=== PATIENT | female | born 1935 | race Caucasian/White ===

== ENCOUNTER → 2016-10-10 | Outpatient (CLI) | payer OTHER, MEDICARE ==
[~2016-10-10] MED LIST: ANTIVERT25 MG PO; ASPIRIN EC81 M1 PO; CLONIDINE0.1 PO; DYAZIDE; FISH OIL 1,0001 EAC5 PO; IBUPROFEN200 M2 PO; MULTIVITAMINS PO; NORCO 5-325 TA1 EACH PO; TRIAMTERENE-HC1 EAC1 PO; VITAMIN E400 UNIT PO
== END ==
LOC: RAD 13:37
DX: Z12.31 Encounter for screening mammogram for malignant neoplasm of breast (principal)

== ENCOUNTER → 2016-12-13 | Outpatient (CLI) | payer OTHER, MEDICARE | LOC: CAT 11:13 | DX: M79.671 Pain in right foot (principal) ==

== ENCOUNTER 2017-02-02 05:13 | Day surgery (SDC) | payer OTHER, MEDICARE ==
[~2017-02-02] VITALS: Ht 152.4 cm; Wt 65.8 kg
--- NOTE | ~2017-02-02 | S ---
[facility] [place] [address] SURGICAL PATH RPT PROCEDURE Name: MARLY TORREZ [facility]#: [id number] Admission: 02/02/17 Date of : 39 Discharge: 02/03/17 Report #: [id number] Path Case #: [id number] PATHOLOGY REPORT COLLECTION DATE: 02/02/2017 RECEIVED DATE: 02/02/2017 SUBMITTING PHYS: Dr. Diaz Lemus OTHER PHYS: Dr. Chey Zamora SPECIMEN(S) RECEIVED: A.Gallbladder * * * * * * * * * * * * FINAL DIAGNOSIS: Gallbladder, cholecystectomy: - Mild chronic cholecystitis. - Cholelithiasis. (IUV:pit; 02/06/2017) PATHOLOGIST: Angelica Gutierrez M.D. REPORT ELECTRONICALLY SIGNED BY: Angelica Gutierrez M.D. DATE/TIME: 02/06/2017 14:13 * * * * * * * * * * * * GROSS PATHOLOGY: Received in formalin labeled "Marly Vides gallbladder" and consists of a previously opened gallbladder measuring 6.5 cm in length by 5.1 cm in circumference. The serosa is glistening and green to yellow. The wall thickness is 0.2 cm. The mucosa is slightly velvety and green. Within the container are 5 nodular black calculi ranging in size from 0.6 cm to 1.3 cm. Public Records Researcher sections are submitted as A1. (JUAN JOSE; 02/03/2017) CLINICAL HISTORY: Gallbladder disease INITIAL CPT CODE(S): A; 83142 Professional services performed by [facility] at [facility] [address], [place] [address] Technical services performed by [facility] at [address] [place] [id number]. [facility] [address] [place] [address] SURGICAL PATH RPT PROCEDURE Name: MARLY TORREZ JULY Room #: DEP [facility]#: [id number] Admission: 02/02/17 Date of : 39 Discharge: 02/03/17 Report #: [id number] Path Case #: [id number] [facility] [address] [address] PHONE: [phone] DIRECTOR: Ivan Hernandez M.D. * * * END OF REPORT * * *
[~2017-02-02 05:13] MED LIST changes: +APAP650 PO; +CAL-CITRATE PL1 EACH PO; +CIPRO500 MG PO; +COZAAR 50 MG TA50 M2 PO; +VITAMIN D31000 UNIT PO; +VITAMIN E400 UNI2 PO; +ZYRTEC10 M5 PO
[2017-02-02 09:55] LABS: CALCIUM 9.9 mg/dL (8.5-10.1); CREATININE 0.9 mg/dL (0.6-1.0); POTASSIUM 3.1 mmol/L (3.5-5.1)
[2017-02-02 10:21] VITALS: BP 167/73
[2017-02-02] MEDS ORDERED: SENNA-S TABLET1 EACH PO (15:19)
[2017-02-02] MEDS ORDERED: HYDROCODONE-AP1 EAC6 PO (15:19)
[2017-02-02 17:05] VITALS: BP 150/60
[2017-02-02 20:00] VITALS: BP 149/49
[2017-02-03 04:29] VITALS: BP 142/52
[2017-02-03 06:18] LABS: HEMATOCRIT 33.8 % (37.0-47.0); HEMOGLOBIN 11.6 gm/dL (12.0-15.0); MCHC 34.3 g/dL (28.0-37.0); MCV 93.5 fL (80.0-100.0); PLATELET COUNT 268 thou/uL (150-400); RBC 3.61 mil/uL (4.20-5.00)
[2017-02-03 06:25] LABS: MANUAL DIFF YES
[2017-02-03 06:31] LABS: CALCIUM 9.3 mg/dL (8.5-10.1); POTASSIUM 3.6 mmol/L (3.5-5.1)
[2017-02-03 07:42] VITALS: BP 122/44
[2017-02-03 08:16] LABS: ABSOLUTE NEUTROPHILS 6.9 thou/uL (1.4-8.2); TOTAL CELL COUNT 100
[2017-02-03 08:17] LABS: PLATELET ESTIMATE NORMAL
[2017-02-03 10:28] VITALS: BP 122/44
== END 2017-02-03 10:45 | disposition home health service (06) ==
LOC: OR 05:13 → TBA 05:14 → OR 14:55 → 4E 17:11 → ENTRNSPT 02-03 10:34 → EDTRNSPTSTS 02-03 10:36 → OR 02-03 10:45
PROVIDERS: Surgery
DX: K80.20 Calculus of gallbladder without cholecystitis without obstruction (principal)
CPT/HCPCS: 50010; 50101; 50249; 50411; 50555; 50558; 50962; 51489; 51975; 52265; 53307; 54022; 54118; 55245; 55317; 56462; 56525; 56526; 62110; 62900; 70005

== ENCOUNTER → 2017-10-24 | Outpatient (CLI) | payer OTHER, MEDICARE ==
[~2017-10-24] MED LIST changes: +CENTRUM CHEWAB1 EACH PO; +HYDROCODONE-AP1 EAC6 PO; +SENNA-S TABLET1 EACH PO; +VITAMIN D32000 UNIT PO
== END ==
LOC: RAD 14:07
DX: Z12.31 Encounter for screening mammogram for malignant neoplasm of breast (principal); I10 Essential (primary) hypertension

== ENCOUNTER 2017-11-01 05:29 | Inpatient (IN) | payer OTHER, MEDICARE ==
[2017-10-23 13:02] LABS: HEMATOCRIT 37.1 % (37.0-47.0); HEMOGLOBIN 12.8 gm/dL (12.0-15.0); MCH 32.5 pg (26.0-34.0); MCHC 34.5 g/dL (28.0-37.0); MCV 94.4 fL (80.0-100.0); RBC 3.93 mil/uL (4.20-5.00); RDW 13.4 % (10.5-14.5); WBC 7.8 thou/uL (4.0-11.0)
[2017-10-23 13:03] LABS: ALBUMIN 4.5 g/dL (3.4-5.0); CREATININE 1.3 mg/dL (0.6-1.0); POTASSIUM 3.8 mmol/L (3.5-5.1)
[2017-10-23 13:32] LABS: URINE BILIRUBIN NEGATIVE (Negative); URINE BLOOD NEGATIVE (Negative); URINE CLARITY CLEAR; URINE COLOR YELLOW; URINE GLUCOSE-RANDOM* NEGATIVE (Negative); URINE KETONES NEGATIVE (Negative); URINE LEUKOCYTES-REFLEX NEGATIVE (Negative); URINE NITRITE-REFLEX NEGATIVE (Negative); URINE PROTEIN (DIPSTICK) NEGATIVE (Negative); URINE UROBILINOGEN 0.2 E.U./dl (0.2-1.0)
[2017-11-01] VITALS (14 sets, daily range): BP systolic 125–172; BP diastolic 51–125
[~2017-11-01] VITALS: Ht 152.4 cm; Wt 63.0 kg
--- NOTE | ~2017-11-01 | EKG ---
[address] [address] ELECTROCARDIOGRAM REPORT Name: RAMEZ TORREZ Room #: PRE IN ..#: [id number] Admission: Attend Phys: Hosea Castañeda MD Discharge: Date of : 39 Report #: [id number] THIS REPORT FOR: //name// [facility] Test Date: 2017-10-23 Test Time: 13:04:14 Pat Name: RAMEZ TORREZ Department: Room: Gender: F International Trade Manager: ANTHONY TRACY : 1935 Requested By: Hosea Castañeda Order Number: [id number] MD: Charanjit Sumner Measurements Intervals [place] Rate: 79 P: 70 MN: 178 QRS: 40 QRSD: 95 T: 56 QT: 381 QTc: 437 Interpretive Statements Sinus rhythm No significant abnormality Compared to ECG 07/13/2011 06:40:21 Limb lead reversal is no longer present Electronically Signed On 10-24-2017 8:56:31 CDT by Charanjit Sumner [email or web address] <ELECTRONICALLY SIGNED> By: Charanjit Sumner MD, [facility] 10/24/17 0856 1304 1304 Charanjit Sumner MD, [facility] /EPI
--- NOTE | ~2017-11-01 | O ---
[facility] [place] [address] OPERATIVE REPORT Name: RAMEZ TORREZ JULY Room #: 419-P ADM IN M.R.#: [id number] Admission: 11/01/17 Attend Phys: Hosea Castañeda MD Discharge: Date of : 37 Report #: [id number] THIS REPORT FOR: //name// CC: Chey Castañeda DATE OF SERVICE: 11/01/2017 PREOPERATIVE DIAGNOSIS: Left knee osteoarthritis. POSTOPERATIVE DIAGNOSIS: Left knee osteoarthritis. PROCEDURE: Left total knee arthroplasty using Navio system. SURGEON: Hosea Castañeda MD WIND TURBINE TECHNICIAN: Meghan Avila PA-C INDICATION FOR ASSISTANCE: Throughout the case, extensive retraction and manipulation of the knee was required. ANESTHESIA: LMA with an adductor canal block. IMPLANTS: Rosario and Nephew size 5 Legion narrow cobalt chrome femur, a size 3 tibia, a size 9 polyethylene and a size 29 patella. TOURNIQUET TIME: 57 minutes. : 25 mL. COMPLICATIONS: None. SPECIMENS: None. CONDITION UPON LEAVING THE OPERATING ROOM: Stable. INDICATIONS: The patient is a 81-year-old female with left knee osteoarthritis. She had failed conservative treatment for this and after discussion with her, she elected for left total knee arthroplasty. DESCRIPTION OF PROCEDURE: Risks, benefits, alternatives, complications were discussed in detail with the patient including but not limited to risk of anesthesia, risk of damage to nerves, arteries and blood vessels, risk for infection and bleeding, risk for continued knee pain and need for reoperation. Informed consent was obtained from the patient. Left knee was appropriately marked in the preoperative holding area. IV clindamycin was given for [facility] [address] [place] [address] OPERATIVE REPORT Name: RAMEZ TORREZ JULY Room #: 419-P ADM IN M.R.#: [id number] Admission: 11/01/17 Attend Phys: Hosea Castañeda MD Discharge: Date of : 37 Report #: [id number] preoperative antibiotics. Adductor canal block was placed by Anesthesia. She was brought to the operating room and placed in supine position on the operating room table. LMA anesthesia was induced without complication. Tourniquet was placed on the left thigh. Left lower extremity was prepped and draped in normal sterile fashion. Timeout was performed properly identifying the patient and procedure as well as the instrumentation and implants. All in the operating room were in agreement. Left lower extremity was exsanguinated, tourniquet was inflated. Tourniquet time was 57 minutes. Standard midline approach to the knee was made with 10 blade through the skin. Dissection was taken down sharply to the fascia and deep flaps were developed medially and laterally. Fresh 10 blade was used to make a medial parapatellar arthrotomy and there was tricompartmental osteoarthritis noted. ACL and PCL were removed sharply. Reference pins were then placed into the femur and the tibia and the knee was then digitally mapped using the wutabout system. Intraoperative plan was made and we planned for a size 5 femur and a size 3 tibia. After acceptance of the plan, the distal femoral cut was made using the Navio bur. The size 5, 4-in-1 cutting block was placed and the anterior, posterior and chamfer cuts were made on the femur. The tibia was then subluxed anteriorly and the tibial resection guide was pinned in place using the Navio computer system. Tibial resection was then made with a saw. The tibia was sized, found to be a size 3, a size 3 tibial trial was placed and pinned. A size 5 femoral trial was placed and the box cut was made. A post was placed and this was trialed with a size 9 polyethylene. Knee was taken through range of motion, found to have good balance in flexion, extension both medially and laterally, both manually as well as digitally using the Navio system. A 9 mm was taken off the posterior surface of the patella and a size 29 patellar trial button was placed. Knee was taken through range of motion, found to be stable, found to have good patellar tracking. Trial components were removed. Bony ends were thoroughly irrigated with normal saline and a final size 3 tibia, a size 5 Legion narrow cobalt chrome femur and a size 29 patella were cemented in place using standard cementation techniques. While the cement cured, a periarticular injection consisting of morphine, ropivacaine, epinephrine and Toradol was placed around the knee joint and tissues. After the cement cured, tourniquet was deflated. Hemostasis was obtained with Bovie cautery. A final size 9 polyethylene was placed. A gram of vancomycin was placed deep in the joint. The fascia was closed with 0 Vicryl, skin was closed with 2-0 Vicryl and Monocryl. Dermabond and a JUSTIN dressing was applied. The patient tolerated this procedure well and went to recovery room under care of Anesthesia postoperatively. <ELECTRONICALLY SIGNED> By: Hosea Castañeda MD 11/02/17 0741 1641 [id number] Hosea Castañeda MD /nt
[2017-11-02 00:30] VITALS: BP 168/75
[2017-11-02 01:30] VITALS: BP 147/58
[2017-11-02 02:30] VITALS: BP 118/57
[2017-11-02 06:06] LABS: HEMATOCRIT 31.9 % (37.0-47.0); MCH 32.8 pg (26.0-34.0); MCHC 34.5 g/dL (28.0-37.0); MCV 95.1 fL (80.0-100.0); RBC 3.36 mil/uL (4.20-5.00); RDW 13.3 % (10.5-14.5); WBC 9.1 thou/uL (4.0-11.0)
[2017-11-02 07:10] VITALS: BP 130/53
[2017-11-02 22:52] VITALS: BP 133/42
[2017-11-03 08:36] VITALS: BP 121/41
[2017-11-03 09:23] LABS: HEMATOCRIT 31.2 % (37.0-47.0); HEMOGLOBIN 10.8 gm/dL (12.0-15.0); MCH 32.7 pg (26.0-34.0); MCHC 34.6 g/dL (28.0-37.0); MCV 94.4 fL (80.0-100.0); RBC 3.3 mil/uL (4.20-5.00); RDW 13.5 % (10.5-14.5); WBC 8.1 thou/uL (4.0-11.0)
[2017-11-03 14:10] VITALS: BP 129/54
[2017-11-03] MEDS ORDERED: NEURONTIN 300300 M1 PO (14:20)
== END 2017-11-03 17:09 | disposition home or self-care (01) | DRG 470 ==
LOC: 4E 05:29 → TBA 05:29 → PRE 05:34 → 4W 18:04 → 4E 22:44 → SICU 11-02 16:23 → ENTRNSPT 11-03 16:17 → SICU 11-03 17:09
PROVIDERS: Orthopaedic Surgery
PROC: 0SRD0J9 Replacement of Left Knee Joint with Synthetic Substitute, Cemented, Open Approach (ICD-10-PCS; principal; 2017-11-01)
PROC: 8E0Y0CZ Robotic Assisted Procedure of Lower Extremity, Open Approach (ICD-10-PCS; 2017-11-01)
DX: M17.12 Unilateral primary osteoarthritis, left knee (principal); Z88.8 Allergy status to other drugs, medicaments and biological substances; Z79.82 Long term (current) use of aspirin; Z79.899 Other long term (current) drug therapy
CPT/HCPCS: 10783; 15002; 50010; 50101; 50415; 50954; 51130; 51225; 51771; 53078; 53364; 54118; 56527; 56528; 57095; 57103; 57104; 57109; 57110; 57113; 57127; 62110; 62900; 64037; 64041; 70005

== ENCOUNTER 2017-11-07 15:05 | Inpatient (IN) | payer OTHER, MEDICARE ==
[~2017-11-07] VITALS: Ht 152.4 cm; Wt 74.8 kg
--- NOTE | ~2017-11-07 | HC ---
[facility] [place] [address] CONSULTATION Name: RAMEZ TORREZ JULY Room #: 422-P ADM IN M.R.#: [id number] Admission: 11/07/17 Attend Phys: Herb Jaramillo MD Discharge: Date of : 37 Report #: [id number] THIS REPORT FOR: //name// CC: Herb Zamora DATE OF SERVICE: 11/10/2017 HISTORY OF PRESENT ILLNESS: The patient is a 81-year-old white female with history of hypertension, osteoarthritis, who had a prior left total knee replacement on 11/01/2017. She was discharged with home health care. She was doing well, getting around with her front-wheeled walker at home. She had the onset of nausea, vomiting, was admitted to [facility], diagnosed with colitis, suspected ischemic with possible sepsis, acute renal insufficiency and hyponatremia. She underwent an EGD and diagnosed with esophagitis and gastritis. She is significantly debilitated from her premorbid status and we are seeing her in Rehabilitation Medicine consultation. PAST MEDICAL HISTORY: Includes hypertension, osteoarthritis, right rotator cuff repair, closed right shoulder dislocation, reduced lap cholecystectomy. MEDICATIONS: Please see the full medication listing. ALLERGIES: KEFLEX. SOCIAL HISTORY: Lives in a house alone, 2 steps in. Did not utilize a gait aid prior to the total knee replacement, but has used a front-wheeled walker since has involved daughters in the area. REVIEW OF SYSTEMS: Did not offer any current complaints of chest pain, shortness of breath, abdominal discomfort. Still has some abdominal complaints as expected. She feels that her left knee is overall doing better. No other focal extremity pain complaints. Complains of some generalized weakness. PHYSICAL EXAMINATION: GENERAL: A 81-year-old obese, white female, in no obvious distress. She is alert, pleasant. VITAL SIGNS: Last recorded temperature 99, pulse 97, respirations 18, blood pressure 164/65. HEENT: Appeared to be benign. NEUROLOGIC: Cranial nerves grossly intact. Facies are symmetric. ABDOMEN: Somewhat distended, soft, nontender. EXTREMITIES: She has functional range of motion of both upper extremities and decreased active range of motion and strength of the shoulders. Movement of the elbows, wrists, hands are more of a grade 4. Lower extremities, left knee incision is dressed. No focal calf swelling. She can dorsiflex the left ankle. [facility] [address] [place] [address] CONSULTATION Name: RAMEZ TORREZ JULY Room #: 422-P ADM IN M.R.#: [id number] Admission: 11/07/17 Attend Phys: Herb Jaramillo MD Discharge: Date of : 37 Report #: [id number] Noted to have good range of motion, -5-105 in physical therapy. Strength is probably a grade 4- to 3+. Right lower extremity strength is grade 4-. She has been min assist with sit to stand. Gait was 30-feet min assist with a front-wheeled walker. ASSESSMENT: A 81-year-old white female with the following problem list: 1. Medical complexity with generalized debilitation. 2. Colitis, suspected ischemic colitis with possible sepsis. 3. Esophagitis. 4. Gastritis. 5. Hyponatremia. 6. Acute renal insufficiency. 7. Recent left total knee replacement on 11/01/2017. PLAN: The patient is currently on IV, PPI and IV antibiotics. She just underwent EGD earlier today. She has had a significant functional decline from her premorbid status. She is dependent for lower extremity dressing and needs min assist with basic functional mobility skills. We are considering her for an acute in-hospital inpatient rehabilitation stay and will be glad to follow along with you. By: 1235 0049 Tyler Harris MD /[place]
--- NOTE | ~2017-11-07 | HC ---
[facility] [place] [address] CONSULTATION Name: RAMEZ TORREZ JULY Room #: 422-P ADM IN M.R.#: [id number] Admission: 11/07/17 Attend Phys: Herb Jaramillo MD Discharge: Date of : 37 Report #: [id number] THIS REPORT FOR: //name// CC: Herb Zamora DATE OF SERVICE: 11/08/2017 REASON FOR CONSULTATION: Evaluate colitis. HISTORY OF PRESENT ILLNESS: The patient is a 81-year-old with underlying history of hypertension and degenerative arthritis. On 11/01/2017, she underwent left total knee arthroplasty without intraoperative complication. Discharged within 48 hours. While at home, noted some constipation with no bowel movement over a 4-day period. Subsequently, she developed increased abdominal pain, left mid to lower quadrant associated with nausea and some vomiting. She then had a hard stool followed by diarrhea. Did not notice any blood in her stool. She was unable to participate in rehabilitation services and was sent to the Emergency Room for further evaluation. She has been hemodynamically stable. She had a marked left shift on her initial CBC. CT scan showed inflammatory changes in the left colon. Her nausea has resolved. She had a soft formed stool today. Abdominal pain has improved. She has been treated with ciprofloxacin and metronidazole. No prior history of coronary artery disease or peripheral vascular disease. No previous stroke. She is a nonsmoker. No previous intestinal disease such as diverticulitis or inflammatory bowel disease. Her abdominal pain is mild in nature and mostly on the left side. Appetite has been poor. ALLERGIES: CEPHALEXIN with hallucinations. Does tolerate penicillins. MEDICATIONS: As noted on her MAR including oxycodone, vitamin E, Zyrtec, vitamin D, multivitamin, triamterene/hydrochlorothiazide, Cozaar, calcium, now on ciprofloxacin and metronidazole. PAST MEDICAL HISTORY: Hypertension, osteoarthritis, rotator cuff repair, bunionectomy, right foot, bilateral cataract surgeries, and bilateral blepharoplasty, right shoulder arthroscopy, laparoscopic cholecystectomy. FAMILY HISTORY: Noncontributory. SOCIAL HISTORY: Nonsmoker, no significant alcohol intake. REVIEW OF SYSTEMS: Ten-point review of systems was negative other than what is described above. PHYSICAL EXAMINATION: [facility] [address] [place] [address] CONSULTATION Name: RAMEZ TORREZ JULY Room #: 422-P ADM IN ..#: [id number] Admission: 11/07/17 Attend Phys: Herb Jaramillo MD Discharge: Date of : 37 Report #: [id number] VITAL SIGNS: Afebrile and hemodynamically stable. GENERAL: She is alert and cooperative and pleasant, in no acute distress. Mental status was normal. Mood was normal. NEUROLOGIC: Nonfocal. Cranial nerves were intact. Strength was normal throughout, although it was limited evaluation to the right leg due to her postoperative state. SKIN: Unremarkable, without rash or decubitus. No lymphadenopathy. HEENT: Eyes nonicteric. Mouth unremarkable. No mucositis or ulcerations. NECK: Supple, with no thyromegaly. LUNGS: Clear. HEART: Regular, without murmur. ABDOMEN: Soft, positive bowel sounds, tenderness in the left mid to lower quadrant without appreciable mass. No hepatosplenomegaly or mass. RECTAL: Not performed. BACK: Unremarkable. No CVA tenderness. EXTREMITIES: With postoperative change, left knee. Wound dressing was dry and intact. Range of motion was limited with approximately 25 degrees of flexion. Ecchymosis to the medial aspect of her knee and thigh. Minimal peripheral edema on the left leg. LABORATORY STUDIES: Sodium 129, potassium 3.8, bicarbonate 25, creatinine 1.3, alkaline phosphatase 210. Liver function test normal. Albumin of 2.0, lactate 1.5, hemoglobin 8.2, platelet count 236,000, WBC 6.4 with 79% segs. Yesterday's white count was 9.9 with 40% bands. Chest x-ray, left lower lobe atelectasis. CT scan of the abdomen showed again left lower lobe atelectasis with left colonic inflammatory change involving the distal transverse and descending colon. She did have some mild diverticular changes in the sigmoid region. No abscess evident. IMPRESSION: A 81-year-old who is 7 days post left total knee arthroplasty, presents with left colitis. I am suspecting underlying ischemia due to her constipation. It is still possible this could be related to acute bacterial infection, although she has not been eating out or eating much at all to contract such. She has had no other travel exposure. Inflammatory bowel disease also considered, but would be less likely. RECOMMENDATIONS: We will continue with ciprofloxacin and metronidazole. Repeat laboratory studies and continue with fluid resuscitation. The patient will require colonoscopy following discharge to further evaluate. Would avoid constipation. If any worsening, we will need to have GI service evaluate sooner. <ELECTRONICALLY SIGNED> By: Burt Reyes MD 11/09/17 1101 21 0125 Burt Reyes MD /nt
--- NOTE | ~2017-11-07 | EKG ---
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: : 1935 Requested By: Melissa Wakefield Order Number: [id number] MD: Charanjit Sumner Measurements Intervals [place] Rate: 95 P: 74 AK: 170 QRS: 48 QRSD: 89 T: 27 QT: 322 QTc: 405 Interpretive Statements Sinus rhythm Low voltage, precordial leads Compared to ECG 10/23/2017 13:04:14 Low QRS voltage now present Electronically Signed On 11-07-2017 17:10:19 CDT by Charanjit Sumner [email or web address] <ELECTRONICALLY SIGNED> By: Charanjit Sumner MD, [facility] 11/07/17 1710 1556 1556 Charanjit Sumner MD, [facility] /EPI
--- NOTE | ~2017-11-07 | P ---
[facility] [place] [address] PROCEDURE REPORT Name: RAMEZ TORREZ JULY Room #: 422-P ADM IN M.R.#: [id number] Admission: 11/07/17 Attend Phys: Herb Jaramillo MD Discharge: Date of : 37 Report #: [id number] THIS REPORT FOR: //name// CC: Herb Zamora DATE OF SERVICE: 11/10/2017 PROCEDURE PERFORMED: Upper endoscopy. HISTORY OF PRESENT ILLNESS: The patient is a 81-year-old female with a recent left total knee arthroplasty who was admitted on 11/07/2017 for abdominal pain and drop in her hemoglobin. CT scan of the abdomen showing abnormal thickening of the distal transverse and descending colon consistent with colitis. The patient is on IV antibiotics at this time. She has continued significant nausea as well as dysphagia. Therefore, the plan is for upper endoscopy today for further evaluation. DESCRIPTION OF PROCEDURE: The risks and benefits of the procedure were explained to the patient, those risks including but not limited to bleeding, perforation, the risk of sedation. She understood these risks and gave informed consent. Sedation was given using propofol per anesthesia. Next, using a standard Olympus upper endoscope, the scope was placed in the patient's mouth and advanced under direct vision through the esophagus, stomach and into the second portion of the duodenum. The upper and mid esophagus were normal in appearance. In the distal esophagus, there was evidence of significant grade C erosive esophagitis filled with linear ulcerations. There were no signs of bleeding, no vessels or blood was noted. There was diffuse moderate gastritis noted throughout the stomach. I was not able to take biopsies as the patient is on aspirin at this time. There were no signs of bleeding. The pylorus was normal and patent. The duodenal bulb, first and second portion were all normal. The scope was then withdrawn and the procedure terminated. The patient tolerated the procedure well. IMPRESSION: 1. Grade C erosive esophagitis. 2. Diffuse gastritis. 3. Otherwise normal upper endoscopy. RECOMMENDATIONS: We will increase PPI to 40 mg b.i.d. IV. We will add liquid Carafate at this time and start full liquid diet today. As far as her colitis, this is suspected ischemic colitis. Her CT arteriogram of the abdomen shows no mesenteric stenosis. Stool studies are still pending. In the meantime, we will continue Cipro and Flagyl. If stool studies are negative, we will discontinue antibiotics in the near future. [facility] [address] [place] [address] PROCEDURE REPORT Name: RAMEZ TORREZ JULY Room #: 422-P [facility] IN M.R.#: [id number] Admission: 11/07/17 Attend Phys: Herb Jaramillo MD Discharge: Date of : 37 Report #: [id number] Thank you for allowing me to participate in her care. <ELECTRONICALLY SIGNED> By: Piotr Pollack MD 11/11/17 1039 1334 0558 Piotr Pollack MD /baljit
[~2017-11-07 15:05] MED LIST changes: +NEURONTIN 300300 M1 PO
[2017-11-07 15:14] VITALS: BP 93/42
[2017-11-07] MEDS ORDERED: OXYCODONE-ACET1 EACH PO (15:39)
[2017-11-07 15:43] LABS: HEMATOCRIT 28.2 % (37.0-47.0); HEMOGLOBIN 9.7 gm/dL (12.0-15.0); MCH 32.4 pg (26.0-34.0); MCHC 34.5 g/dL (28.0-37.0); MCV 93.9 fL (80.0-100.0); PLATELET COUNT 296 thou/uL (150-400); RDW 14.2 % (10.5-14.5); WBC 9.9 thou/uL (4.0-11.0)
[2017-11-07 15:53] LABS: ANION GAP 7 mmol/L (7-16); BUN 44 mg/dL (7-18); CALCIUM 10.6 mg/dL (8.5-10.1); CHLORIDE 92 mmol/L (98-107); CO2 28 mmol/L (21-32); CREATININE 1.9 mg/dL (0.6-1.0); GLUCOSE 148 mg/dL (74-106); POTASSIUM 4.6 mmol/L (3.5-5.1); SODIUM 127 mmol/L (136-145)
[2017-11-07 16:01] LABS: ALBUMIN 2.5 g/dL (3.4-5.0); LIPASE 48 U/L (73-393); SGOT 34 U/L (15-37); SGPT 86 U/L (30-65); TOTAL BILIRUBIN 1.3 mg/dL (<0.1-1.0); TOTAL PROTEIN 6.5 g/dL (6.4-8.2); TROPONIN-I <0.06 ng/mL (<0.06)
[2017-11-07 16:08] LABS: ABSOLUTE NEUTROPHILS 7.5 thou/uL (1.4-8.2); METAMYELOCYTES 1 %; PLATELET ESTIMATE NORMAL
[2017-11-07 17:35] VITALS: BP 125/50
[2017-11-07 20:00] VITALS: BP 119/42
[2017-11-07 23:00] VITALS: BP 108/39
[2017-11-08 00:30] VITALS: BP 105/40
[2017-11-08 04:18] LABS: ABSOLUTE NEUTROPHILS 5.1 thou/uL (1.4-8.2); BASOPHILS 0.4 % (0.0-2.0); EOSINOPHILS 1.3 % (0.0-3.0); HEMATOCRIT 23.3 % (37.0-47.0); HEMOGLOBIN 8.2 gm/dL (12.0-15.0); LYMPHOCYTES 9.6 % (24.0-44.0); MCH 33.1 pg (26.0-34.0); MCHC 35.1 g/dL (28.0-37.0); MCV 94.3 fL (80.0-100.0); MONOCYTES 9.2 % (1.0-8.0); PLATELET COUNT 236 thou/uL (150-400); POLYS 79.5 % (36.0-66.0); RBC 2.47 mil/uL (4.20-5.00); RDW 14.2 % (10.5-14.5); WBC 6.4 thou/uL (4.0-11.0)
[2017-11-08 04:30] VITALS: BP 140/49
[2017-11-08 04:43] LABS: CALCIUM 8.9 mg/dL (8.5-10.1); CREATININE 1.3 mg/dL (0.6-1.0); MAGNESIUM 1.8 mg/dL (1.8-2.4); POTASSIUM 3.8 mmol/L (3.5-5.1); TOTAL BILIRUBIN 0.9 mg/dL (<0.1-1.0); TOTAL PROTEIN 5.2 g/dL (6.4-8.2)
[2017-11-08 18:15] VITALS: BP 120/35
[2017-11-08 19:45] VITALS: BP 145/41
[2017-11-09 04:58] VITALS: BP 144/43
[2017-11-09 05:38] LABS: ABSOLUTE NEUTROPHILS 4.4 thou/uL (1.4-8.2); BASOPHILS 0.6 % (0.0-2.0); HEMATOCRIT 23.6 % (37.0-47.0); HEMOGLOBIN 8.2 gm/dL (12.0-15.0); MCH 32.8 pg (26.0-34.0); MCHC 34.9 g/dL (28.0-37.0); MCV 93.8 fL (80.0-100.0); MONOCYTES 11.1 % (1.0-8.0); PLATELET COUNT 286 thou/uL (150-400); POLYS 73.3 % (36.0-66.0); RBC 2.51 mil/uL (4.20-5.00); RDW 14.1 % (10.5-14.5)
[2017-11-09 09:50] VITALS: BP 156/61
[2017-11-09 14:52] LABS: % SATURATION 12 % (20-39); IRON 19 ug/dL (50-170); TIBC 161 ug/dL (250-450)
[2017-11-09 21:00] VITALS: BP 175/65
[2017-11-09 23:00] VITALS: BP 157/52
[2017-11-10 04:59] VITALS: BP 168/55
[2017-11-10 07:26] LABS: HEMATOCRIT 24.7 % (37.0-47.0); HEMOGLOBIN 8.6 gm/dL (12.0-15.0); MCH 32.5 pg (26.0-34.0); MCHC 34.7 g/dL (28.0-37.0); MCV 93.7 fL (80.0-100.0); RBC 2.64 mil/uL (4.20-5.00); RDW 14.2 % (10.5-14.5); WBC 6.2 thou/uL (4.0-11.0)
[2017-11-10 07:42] VITALS: BP 164/65
[2017-11-10 09:16] LABS: ALBUMIN 2.1 g/dL (3.4-5.0); CREATININE 0.8 mg/dL (0.6-1.0); POTASSIUM 3.4 mmol/L (3.5-5.1); TOTAL BILIRUBIN 0.5 mg/dL (<0.1-1.0); TOTAL PROTEIN 5.2 g/dL (6.4-8.2)
[2017-11-10 15:48] VITALS: BP 156/76
[2017-11-10 19:20] VITALS: BP 159/52
[2017-11-11 04:44] VITALS: BP 170/565; BP 170/65
[2017-11-11 06:31] LABS: HEMATOCRIT 25.6 % (37.0-47.0); HEMOGLOBIN 8.8 gm/dL (12.0-15.0); MCH 32.2 pg (26.0-34.0); MCHC 34.4 g/dL (28.0-37.0); MCV 93.4 fL (80.0-100.0); RBC 2.74 mil/uL (4.20-5.00); RDW 14.2 % (10.5-14.5); WBC 6.9 thou/uL (4.0-11.0)
[2017-11-11 06:45] LABS: CALCIUM 8.7 mg/dL (8.5-10.1); CREATININE 0.9 mg/dL (0.6-1.0); MAGNESIUM 1.6 mg/dL (1.8-2.4); POTASSIUM 3.2 mmol/L (3.5-5.1)
[2017-11-11 07:31] VITALS: BP 153/56
[2017-11-11 15:46] VITALS: BP 146/68
[2017-11-11 20:00] VITALS: BP 136/65
[2017-11-12 04:51] VITALS: BP 148/56
[2017-11-12 07:59] LABS: HEMATOCRIT 25.6 % (37.0-47.0); MCH 32.7 pg (26.0-34.0); MCV 93.3 fL (80.0-100.0); RBC 2.75 mil/uL (4.20-5.00); WBC 7.6 thou/uL (4.0-11.0)
[2017-11-12 08:14] LABS: CALCIUM 8.3 mg/dL (8.5-10.1); CREATININE 0.8 mg/dL (0.6-1.0); MAGNESIUM 1.9 mg/dL (1.8-2.4); POTASSIUM 3.1 mmol/L (3.5-5.1)
[2017-11-12 09:26] VITALS: BP 153/55
[2017-11-12 18:07] VITALS: BP 145/90
[2017-11-12 19:58] VITALS: BP 143/43
[2017-11-13 05:03] VITALS: BP 148/5
[2017-11-13 05:33] LABS: HEMATOCRIT 27.3 % (37.0-47.0); HEMOGLOBIN 9.3 gm/dL (12.0-15.0); MCH 31.5 pg (26.0-34.0); MCHC 33.9 g/dL (28.0-37.0); MCV 92.8 fL (80.0-100.0); RBC 2.94 mil/uL (4.20-5.00); RDW 14.6 % (10.5-14.5); WBC 9.3 thou/uL (4.0-11.0)
[2017-11-13 05:46] LABS: CALCIUM 8.3 mg/dL (8.5-10.1); CREATININE 0.9 mg/dL (0.6-1.0); MAGNESIUM 1.7 mg/dL (1.8-2.4); POTASSIUM 3.3 mmol/L (3.5-5.1)
[2017-11-13 08:40] VITALS: BP 150/56
[2017-11-13 19:17] VITALS: BP 151/87
[2017-11-14 02:15] VITALS: BP 156/55
[2017-11-14 07:22] VITALS: BP 153/64
[2017-11-14] MEDS ORDERED: PROTONIX40 M1 PO (14:43)
[2017-11-14] MEDS ORDERED: ACIDOPHILUS1 EAC4 PO (14:43)
[2017-11-14] MEDS ORDERED: ASPIRIN325 PO (14:43)
[2017-11-14] MEDS ORDERED: CARAFATE 11 GM/10 M1 PO (14:43)
[2017-11-14] MEDS ORDERED: IPRAT-ALBUT 0.5-3 ML INH (14:43)
[2017-11-14] MEDS ORDERED: MIRALAX17 GM PO (14:43)
[2017-11-14] MEDS ORDERED: NORVASC5 MG PO (14:43)
[2017-11-14] MEDS ORDERED: ASPIRIN81 M2 PO (14:54)
[2017-11-14] MEDS ORDERED: LASIX 40 MG TAB40 M2 PO (14:58)
== END 2017-11-14 16:15 | DRG 871 ==
LOC: ER 15:05 → 4E 17:16 → EROBS 17:16 → 4E 18:09
PROVIDERS: Internal Medicine; Nurse Practitioner; Specialist; Student in an Organized Health Care Education/Training Program
PROC: 0DJ08ZZ Inspection of Upper Intestinal Tract, Via Natural or Artificial Opening Endoscopic (ICD-10-PCS; principal; 2017-11-10)
DX: A41.9 Sepsis, unspecified organism (principal); E43 Unspecified severe protein-calorie malnutrition; N17.0 Acute kidney failure with tubular necrosis; K55.9 Vascular disorder of intestine, unspecified; E87.1 Hypo-osmolality and hyponatremia; K22.10 Ulcer of esophagus without bleeding; A09 Infectious gastroenteritis and colitis, unspecified; Z66 Do not resuscitate; I10 Essential (primary) hypertension; M19.90 Unspecified osteoarthritis, unspecified site; Z96.652 Presence of left artificial knee joint; K21.0 Gastro-esophageal reflux disease with esophagitis; K59.00 Constipation, unspecified; E87.6 Hypokalemia; E83.42 Hypomagnesemia; D63.8 Anemia in other chronic diseases classified elsewhere; K29.70 Gastritis, unspecified, without bleeding; E86.0 Dehydration; Z68.32 Body mass index [BMI] 32.0-32.9, adult; Z98.42 Cataract extraction status, left eye; Z98.41 Cataract extraction status, right eye; Z90.49 Acquired absence of other specified parts of digestive tract; Z79.899 Other long term (current) drug therapy; Z88.8 Allergy status to other drugs, medicaments and biological substances
CPT/HCPCS: 10183; 10783; 62110; 62900; 70005

== ENCOUNTER 2018-04-25 10:56 | Emergency (ER) | payer OTHER, MEDICARE ==
[~2018-04-25] VITALS: Ht 152.4 cm; Wt 62.1 kg
[~2018-04-25 10:56] MED LIST changes: +ACIDOPHILUS1 EAC4 PO; +ASPIRIN325 PO; +ASPIRIN81 M2 PO; +CARAFATE 11 GM/10 M1 PO; +IPRAT-ALBUT 0.5-3 ML INH; +LASIX 40 MG TAB40 M2 PO; +MIRALAX17 GM PO; +NORVASC5 MG PO; +OXYCODONE-ACET1 EACH PO; +PROTONIX40 M1 PO
[2018-04-25 12:29] VITALS: BP 122/56
== END 2018-04-25 12:32 | disposition home or self-care (01) ==
LOC: ER 10:56
DX: S00.83XA Contusion of other part of head, initial encounter (principal); I10 Essential (primary) hypertension; Z96.652 Presence of left artificial knee joint; Z88.1 Allergy status to other antibiotic agents; W00.0XXA Fall on same level due to ice and snow, initial encounter; Y93.89 Activity, other specified; Y92.89 Other specified places as the place of occurrence of the external cause; Y99.8 Other external cause status

== ENCOUNTER → 2018-11-12 | Outpatient (CLI) | payer OTHER, MEDICARE | LOC: RAD 14:08 | DX: Z12.31 Encounter for screening mammogram for malignant neoplasm of breast (principal) ==

== ENCOUNTER 2019-03-01 08:16 | Emergency (ER) | payer OTHER, MEDICARE ==
[~2019-03-01] VITALS: Ht 152.4 cm; Wt 64.4 kg
[2019-03-01] MEDS ORDERED: TYLENOL325 M1 PO (08:39)
[2019-03-01 08:50] LABS: ABSOLUTE NEUTROPHILS 4.2 thou/uL (1.4-8.2); BASOPHILS 0.9 % (0.0-2.0); EOSINOPHILS 1.2 % (0.0-3.0); HEMOGLOBIN 11.9 gm/dL (12.0-15.0); LYMPHOCYTES 16.4 % (24.0-44.0); MCH 31.6 pg (26.0-34.0); MCHC 33.2 g/dL (28.0-37.0); MCV 95.3 fL (80.0-100.0); MONOCYTES 5.8 % (1.0-8.0); PLATELET COUNT 229 thou/uL (150-400); POLYS 75.7 % (36.0-66.0); RBC 3.78 mil/uL (4.20-5.00); RDW 14.5 % (10.5-14.5); WBC 5.6 thou/uL (4.0-11.0)
[2019-03-01 08:59] LABS: ANION GAP 12 mmol/L (7-16); BUN 15 mg/dL (7-18); CHLORIDE 102 mmol/L (98-107); CO2 26 mmol/L (21-32); GLUCOSE 118 mg/dL (74-106); POTASSIUM 3.6 mmol/L (3.5-5.1); SODIUM 140 mmol/L (136-145)
[2019-03-01 09:09] LABS: ALBUMIN 4.3 g/dL (3.4-5.0); MAGNESIUM 1.7 mg/dL (1.8-2.4); SGOT 26 U/L (15-37); SGPT 35 U/L (30-65); TOTAL BILIRUBIN 0.5 mg/dL (<0.1-1.0); TOTAL PROTEIN 7.8 g/dL (6.4-8.2); TROPONIN-I <0.06 ng/mL (<0.06)
[2019-03-01] MEDS ORDERED: CATAPRES0.1 MG PO ×2 (09:34→10:23)
[2019-03-01 09:58] VITALS: BP 149/63
--- NOTE | 2019-03-01 09:58 | EKG ---
[address] [address] ELECTROCARDIOGRAM REPORT Name: RAMEZ TORREZ WOO 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
== END 2019-03-01 10:18 | disposition home or self-care (01) ==
LOC: ER 08:16
PROVIDERS: Emergency Medicine
DX: I10 Essential (primary) hypertension (principal); J06.9 Acute upper respiratory infection, unspecified; Z88.1 Allergy status to other antibiotic agents; Z79.899 Other long term (current) drug therapy; Z79.82 Long term (current) use of aspirin; Z96.652 Presence of left artificial knee joint

== ENCOUNTER → 2019-12-03 | Outpatient (CLI) | payer OTHER, MEDICARE ==
[~2019-12-03] MED LIST changes: +CATAPRES0.1 MG PO; +TYLENOL325 M1 PO
== END ==
LOC: RAD 08:42
PROVIDERS: ATTEND Family Medicine
DX: Z12.31 Encounter for screening mammogram for malignant neoplasm of breast (principal)